=== PATIENT | male | born 1975 | race Caucasian/White ===

== ENCOUNTER 2022-12-15 22:11 | Emergency (ER) | payer OTHER, SELFPAY ==
--- NOTE | ~2022-12-15 | XR_ITS ---
Clinical Indication: Chest pain PA and lateral views of the chest: Comparison: 08/08/2019 Findings: The lungs are clear, without evidence of focal consolidation or pleural effusion. Cardiome diastinal silhouette is within normal limits. Bones and soft tissues are unremarkable. Impression: Normal chest. Reviewed, dictated and finalized at location . Impression: Normal chest.
[2022-12-15 22:13] VITALS: BP 153/83; PULSE 90; RESP 18; TEMP 36.6; O2SAT 98
--- NOTE | 2022-12-15 22:15 | ECG_ITS ---
Measurements Intervals [place] Rate: 80 P: 44 UT: 159 QRS: 28 QRSD: 94 T: 40 QT: 356 QTc: 411 Interpretive Statements SINUS RHYTHM LOW QRS VOLTAGE IN PRECORDIAL LEADS BORDERLINE ECG COMPARED TO ECG 01/30/2019 13:20:49 NO SIGNIFICANT CHANGES Electronically Signed On 12-16-2022 16:55:35 CDT by Fernando Davidson M.D.
[2022-12-15 23:04] VITALS: BP 133/73; PULSE 79; RESP 18; O2SAT 93
[2022-12-15 23:08] LABS: Basophils Absolute Auto 0.1 K/mm3 (0.0-0.1); Basophils Percent Auto 0.9 % (0.2-1.2); Eosinophils Absolute Auto 0.1 K/mm3 (0-0.3); Eosinophils Percent Auto 1.5 % (0-4.4); Hematocrit 44.5 % (42.0-52.0); Hemoglobin 14.8 g/dL (14.0-18.0); Immature Granulocyte Absolute 0.01 K/mm3 (0.00-0.031); Immature Granulocyte Percent A 0.1 % (0-0.5); Lymphocytes Absolute Auto 1.98 K/mm3 (0.9-3.2); Lymphocytes Percent Auto 26.1 % (18.3-44.2); Mean Corpuscular HGB Conc 33.3 g/dl (32-36); Mean Corpuscular Hemoglobin 29.7 pg (26-34); Mean Corpuscular Volume 89.2 fl (80-100); Mean Platelet Volume 9.9 fl (7.4-10.4); Monocytes Absolute Auto 0.8 K/mm3 (0.1-0.6); Neutrophils Absolute Auto 4.7 K/mm3 (1.3-6.7); Neutrophils Percent Auto 61.4 % (45.5-73.1); Platelet Count Result 230 k/mm3 (150-375); Red Blood Count 4.99 M/mm3 (4.6-6.20); Red Cell Distribution Width 12.7 % (11.5-14.5); White Blood Count 7.6 K/mm3 (4.5-10.0)
[2022-12-15 23:31] VITALS: BP 125/70; PULSE 76; RESP 20; O2SAT 94
[2022-12-15 23:38] LABS: Prothrombin Time 12.6 Seconds (11.1-14.7)
[2022-12-15] MEDS: MAG HYDROX/AL HYDROX/SIMETH 30 ML UDC PO (23:38)
[2022-12-15 23:39] LABS: Partial Thromboplastin Time 28.2 SECONDS (22.3-36.8)
[2022-12-15 23:41] LABS: Alanine Aminotransferase 40 U/L (6-50); Albumin Level 4.3 g/dL (3.5-5.1); Alkaline Phosphatase 48 U/L (38-126); Anion Gap 6 mmol/L (8-16); Aspartate Amino Transferase 26 U/L (17-59); Bilirubin,Total 0.5 mg/dL (0.2-1.3); Blood Urea Nitrogen 19 mg/dL (9-20); Calcium 8.6 mg/dL (8.4-10.2); Carbon Dioxide 27 mmol/L (22-30); Chloride 101 mmol/L (98-107); Estimated CRCL calculation 80 ml/min; Estimated Glomerular Filt Rate > 60; Glucose 120 mg/dL (65-110); Lipase 101 U/L (23-300); Potassium 3.7 mmol/L (3.4-5.0); Sodium 134 mmol/L (137-145)
[2022-12-15 23:45] VITALS: O2SAT 96
[2022-12-15 23:46] VITALS: BP 117/70; PULSE 72; RESP 19; O2SAT 97
[2022-12-15 23:53] LABS: Troponin I < 0.012 ng/mL (0.000-0.034)
[2022-12-15] MEDS: FAMOTIDINE 20 MG/2 ML VIAL IV PUSH (23:53)
[2022-12-16] VITALS (10 sets, daily range): BP systolic 108–122; BP diastolic 65–81; PULSE 64–82; RESP 13–21; O2SAT 93–99
--- NOTE | 2022-12-16 00:44 | ED.GENADULT ---
HPI - General Adult General Chief complaint: Chest Pain Stated complaint: chest pain Time Seen by Provider: 12/15/22 22:23 History of Present Illness HPI narrative: This is a 46-year-old male with history of hypertension presenting ED with chief complaint of chest pain. Patient has been having chest pain for several days. It is precipitated by eating. It is a dull pain in the left lower chest. It is nonradiating 7 out 10 intensity and comes and goes. It comes and goes approximately 20 times per day. Is improved when he takes a drink and worse when he is eating especially when it spicy food. He denies nausea, vomiting, diaphoresis or exertional component. He has been prescribed PPIs the past but is not currently taking any. He does also note that he is under lot of stress at home. Patient came into the ED today Because was concerned that he was having a heart attack. Related Data Home Medications Medication Instructions Recorded Confirmed hydrochlorothiazide 25 mg tablet 25 mg PO DAILY 08/08/19 08/08/19 lisinopril 40 mg tablet 40 mg PO DAILY 08/08/19 08/08/19 omeprazole 40 mg capsule,delayed 40 mg PO DAILY 08/08/19 08/08/19 release Allergies Allergy/AdvReac Type Severity Reaction Status Date / Time No Known Allergies Allergy Unverified 08/08/19 12:55 [facility] Past Medical History Medical History (Updated 12/16/22 @ 00:53 by Micha Lewis MD) Hypertension Sleep apnea Social History Social History (Updated 08/08/19 @ 14:01 by Stacia Tracy NP) Smoking status: Never smoker Living arrangements: with family Occupation/Education: occupation Additional occupation/education comments: [employer] Gender identity (if verbalized by the patient): Male Exam Narrative: APPEARANCE: No apparent distress. Head: atraumatic. EYES: EOMI, NOSE: Atraumatic NECK: Trachea midline RESPIRATORY: No increased rate of breathing, clear to auscultation CARDIOVASCULAR: RRR, no peripheral edema ABDOMINAL: Non-distended, soft nontender no guarding or rebound MUSCULOSKELETAl: No obvious deformities NEURO: Alert. Moving 4/4 extremities SKIN:: Warm, dry. Normal color PSYCHIATRIC: Normal affect Course Vital Signs Vital signs: Vital Signs Temperature 97.9 F 12/15/22 22:13 Pulse Rate 90 12/15/22 22:13 Respiratory Rate 18 04/09/23 22:13 Blood Pressure 153/83 H 12/15/22 22:13 Pulse Oximetry 98 12/15/22 22:13 Oxygen Delivery Room Air 12/15/22 22:13 Temperature 97.9 F 12/15/22 22:13 Pulse Rate 79 12/16/22 00:31 Respiratory Rate 20 12/16/22 00:31 Blood Pressure 114/65 12/16/22 00:31 Pulse Oximetry 93 12/16/22 00:31 Oxygen Delivery Room Air 12/15/22 23:45 Medical Decision Making MDM Narrative Medical decision making narrative: -Presentation: 46-year-old male presenting with a chief complaint of chest pain. 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 He lives with his significant other Monse. -External Chart Review: none -History from [place] sources: Monse at bedside -Discussion of Management/Consultants: -Independent interpretation of studies: CBC within normal limits. Metabolic panel is unremarkable. Troponins were negative x2. Chest x-ray is unremarkable. Independent EKG interpretation: Rhythm [sinus], Rate 80, [place] -[normal], [place] -[normal], QRS [narrow], QTC [normal], T waves -[negative for concerning inversions], ST Segments - [Negative for concerning elevations] Final interpretations: [Normal Sinus Rhythm] Dx tests considered but not noneordered: -Procedures: none -Interventions: Pepcid, Maalox -Shared decision making / Disposition: Patient's EKGs and labs are reviewed without significant high risk changes. Cardiac risk factors reviewed. Heart sco
[2022-12-16 03:16] LABS: Troponin I < 0.012 ng/mL (0.000-0.034)
== END 2022-12-16 03:50 | disposition home or self-care (01) ==
PROVIDERS: Emergency Provider Emergency Medicine; PCP Family Medicine Sports Medicine
DX: R07.9 Chest pain, unspecified (principal); K21.9 Gastro-esophageal reflux disease without esophagitis; I10 Essential (primary) hypertension; G47.30 Sleep apnea, unspecified; R94.31 Abnormal electrocardiogram [ECG] [EKG]
CPT/HCPCS: 36415; 71046; 80053; 83690; 84484; 85025; 85610; 85730; 93005; 96374; 99284; A9270

== ENCOUNTER 2025-01-30 11:51 | Emergency (ER) | payer OTHER, SELFPAY ==
--- NOTE | ~2025-01-30 | XR_ITS ---
CHEST RADIOGRAPH, PA AND LATERAL CLINICAL HISTORY: cough . COMPARISON: 12/15/2022 TECHNIQUE: PA and lateral views of the chest. FINDINGS The cardiomediastinal silhouette is unremarkable. The lungs are clear. Visualized osseous structures and soft tissues are unremarkable. IMPRESSION: No focal infiltrate or effusion. Reviewed, dictated and finalized at location A.
[2025-01-30 11:59] VITALS: BP 127/77; PULSE 98; RESP 16; TEMP 36.1; O2SAT 98
--- NOTE | 2025-01-30 12:13 | ED.URI ---
HPI - URI/Sore Throat General Chief Complaint: Upper Respiratory Infection Stated Complaint: Cough Time Seen by Provider: 01/30/25 12:13 Source: patient Mode of arrival: ambulatory Limitations: no limitations History of Present Illness HPI Narrative: 49-year-old male presents with complaint of nasal congestion, postnasal drainage for 3 days. Reports sore throat for 1 day but has resolved. Reports worsening of cough, sounds like a seal. No Chest pain or shortness breath. Concern for pneumonia. All systems reviewed and negative except as noted above. Related Data Home Medications ?Medication ?Instructions ?Recorded ?Confirmed ?Last Taken ?Type hydrochlorothiazide 25 mg tablet 25 mg PO DAILY 08/08/19 08/08/19 Unknown History lisinopril 40 mg tablet 40 mg PO DAILY 08/08/19 08/08/19 Unknown History omeprazole 40 mg capsule,delayed 40 mg PO DAILY 08/08/19 08/08/19 Unknown History release Allergies Allergy/AdvReac Type Severity Reaction Status Date / Time No Known Allergies Allergy Unverified 01/30/25 12:03 Review of Systems Review of Systems: CONSTITUTIONAL: Denies fever, chills, or sweats. EYES: Denies visual changes, redness, or discharge. ENT: Reports rhinorrhea, congestion, sore throat,. Denies otalgia. CARDIOVASCULAR: Denies chest pain, palpitations, or edema. RESPIRATORY: Reports cough. Denies dyspnea. GASTROINTESTINAL: Denies abdominal pain, nausea, vomiting, or diarrhea. GENITOURINARY: Denies dysuria or hematuria. SKIN: Denies rash or itching. MUSCULOSKELETAL: Denies back pain, joint pain, or myalgia. NEUROLOGIC: Denies headache, numbness, or weakness. PSYCHIATRIC: Denies anxiety or depression. All other systems reviewed are negative, except as documented in HPI. [facility] Past Medical History Medical History (Updated 01/30/25 @ 12:38 by Keli Sanchez NP) Sleep apnea Hypertension Social History Social History (Updated 08/08/19 @ 14:01 by Stacia Tracy NP) Smoking status: Never smoker Living arrangements: with family Occupation/Education: occupation Additional occupation/education comments: [employer] Gender identity (if verbalized by the patient): Male Comments At time of signature, agree with nursing past medical, surgical, social and family history. There is no relevant family history pertinent to the presenting complaint. Exam Narrative: GENERAL: This is a well-nourished, well-developed patient, in no apparent distress. HEAD: normocephalic, atraumatic. EYES: PERRL. Sclera clear/white. Vision is grossly intact. EARS: External ears normal, auditory canals clear and without drainage, TMs normal without perforation. Hearing grossly intact. NOSE: External nose normal with clear nasal drainage, mild congestion THROAT: Mucous membranes moist, posterior pharynx clear. NECK: Neck supple, non-tender without lymphadenopathy, masses or thyromegaly. CARDIOVASCULAR: Regular rate and rhythm without murmurs, gallops, or rubs. RESPIRATORY: Mildly decreased to right lower lobe otherwise clear. Breath sounds equal bilaterally. No wheezes, rales, or rhonchi. SKIN: warm, Dry, intact with no suspicious lesions or rash, good texture and turgor. NEURO: awake, alert, and oriented to person, place and time. There were no obvious focal neurologic abnormalities. EXTREMITIES: No joint tenderness, effusion, or edema noted. Course Course Level of Care: Express Care Visit Vital Signs Vital signs: Vital Signs Temperature 36.1 C L 01/30/25 11:59 Pulse Rate 98 01/30/25 11:59 Respiratory Rate 16 01/30/25 11:59 Blood Pressure 127/77 01/30/25 11:59 Pulse Oximetry 98 01/30/25 11:59 Temperature 36.1 C L 01/30/25 11:59 Pulse Rate 98 01/30/25 11:59 Respiratory Rate 16 01/30/25 11:59 Blood Pressure 127/77 01/30/25 11:59 Pulse Oximetry 98 01/30/25 11:59 Oxygen Delivery Room Air 01/30/25 12:04 Reviewed MDM - URI/Sore Throat MDM Narrative Medical decision making narrative: Normal chest x-ray. Patient is well-appearing, nontoxic. Recommend [id number] medications to treat signs symptoms. Imaging Data My impression: Agree with radiologist Radiologist's impression: CHEST RADIOGRAPH, PA AND LATERAL CLINICAL HISTORY: cough . COMPARISON: 12/15/2022 TECHNIQUE: PA and lateral views of the chest. FINDINGS The cardiomediastinal silhouette is unremarkable. The lungs are clear. Visualized osseous structures and soft tissues are unremarkable. IMPRESSION: No focal infiltrate or effusion. Discharge Plan Discharge Clinical Impression: Acute viral sinusitis Patient Disposition: Home Condition: Stable Instructions: Sinusitis (ED) Additional Instructions: Your chest x-ray was normal. Your symptoms are viral and may last 10-14 days. Take medications as prescribed. Taking [id number]-[id number] antihistamine such as Claritin or Zyrtec. Drink at least 64 [address] a day. [address] cool mist humidifier in bedroom where you sleep. See your doctor if symptoms are not improving. Patient Language: Hungarian Prescriptions: New benzonatate 200 mg capsule 200 mg PO TID PRN (Reason: cough) Qty: 20 0RF methylprednisolone [Medrol (Christian)] 4 mg tablets,dose pack See Rx Instructions PO .COMPLEX Qty: 21 0RF Rx Instructions: orally per package directions No Action omeprazole 40 mg capsule,delayed release(DR/EC) 40 mg PO DAILY hydrochlorothiazide 25 mg tablet 25 mg PO DAILY lisinopril 40 mg tablet 40 mg PO DAILY amoxicillin-pot clavulanate [Augmentin] 875-125 mg tablet 1 tablet PO Q12H Qty: 20 0RF prednisone 20 mg tablet 20 mg PO BID 5 Days Qty: 10 0RF famotidine [Pepcid] 20 mg tablet 20 mg PO BID 42 Days Qty: 84 0RF Follow-up/Referrals: Lauren,Akash Weaver MD [Primary Care Provider] - Time of Disposition: 12:38
== END 2025-01-30 12:49 | disposition home or self-care (01) ==
PROVIDERS: Emergency Provider Nurse Practitioner Family; PCP Family Medicine
DX: J01.90 Acute sinusitis, unspecified (principal); I10 Essential (primary) hypertension
CPT/HCPCS: 71046; 99213; G0463